=== PATIENT | male | born 1955 | race Caucasian/White ===

== ENCOUNTER → 2021-10-24 | Day surgery (SDC) | payer OTHER ==
[~2021-10-24] VITALS: Ht 185.4 cm; Wt 79.4 kg
[~2021-10-24] MED LIST: CENTRUM SILVER1 EAC5 PO; MIRALAX17 GM PO; ONDANSETRON ODT4 MG PO; PERCOCET 5-3251 EACH PO; PROBIOTIC1 EAC1 PO
== END | disposition home or self-care (01) ==
LOC: FAS 06:53
DX: K40.90 Unilateral inguinal hernia, without obstruction or gangrene, not specified as recurrent (principal); D17.6 Benign lipomatous neoplasm of spermatic cord; F17.200 Nicotine dependence, unspecified, uncomplicated; M62.89 Other specified disorders of muscle; Z72.89 Other problems related to lifestyle
CPT/HCPCS: C1781; J0690; J1100; J1170; J1885; J2250; J2405; J2550; J2704; J3010; J7120